=== PATIENT | female | born 1970 | race Caucasian/White ===

== ENCOUNTER 2017-05-13 20:30 | Emergency (ER) | payer OTHER ==
[2017-05-13 20:42] VITALS: BP 128/89; PULSE 87; TEMP 98.3; BMI 29.2
--- NOTE | 2017-05-13 21:37 | PDOC ---
History of Present Illness - General History Source: Patient Exam Limitations: No Limitations - History of Present Illness Initial Comments: 05/13/17 21:41 The patient is a 47 year old female, with significant past medical history hyperthyroidism, who presents to the emergency room with a right great toe laceration s/p accidentally dropping a ceramic platter on her toe. No active bleeding. The pain is exacerbated when ambulating. Denies any other injuries or trauma. Her tetanus shot was 7 years ago. 05/13/17 21:46 <Joselin Whittaker - Last Filed: 05/13/17 21:41> <Geraldine Cazares - Last Filed: 05/13/17 22:52> - General Chief Complaint: Injury Stated Complaint: RT BIG TOE INJURY Time Seen by Provider: 05/13/17 20:55 Past History <Joselin Whittaker - Last Filed: 05/13/17 21:41> - Past Medical History Anemia: No Asthma: No Cancer: No Cardiac Disorders: No CVA: No COPD: No CHF: No Dementia: No Diabetes: No GI Disorders: No Disorders: No HTN: No Hypercholesterolemia: No Liver Disease: No Seizures: No Thyroid Disease: Yes - Immunization History Immunization Up to Date: Yes - Suicide/Smoking/Psychosocial Hx Smoking Status: No Smoking History: Never smoked Have you smoked in the past 12 months: No Number of Cigarettes Smoked Daily: 0 Hx Alcohol Use: No Drug/Substance Use Hx: No Substance Use Type: None <Geraldine Cazares - Last Filed: 05/13/17 22:52> - Past Medical History Allergies/Adverse Reactions: Allergies Allergy/AdvReac Type Severity Reaction Status Date / Time No Known Allergies Allergy Verified 05/13/17 20:37 Home Medications: Ambulatory Orders Levothyroxine [Synthroid -] 50 mcg PO DAILY 03/05/13 Review of Systems - Review of Systems Able to Perform ROS?: Yes Comments:: 05/13/17 21:41 GENERAL/CONSTITUTIONAL: No fever or chills. No weakness. HEAD, EYES, EARS, NOSE AND THROAT: No change in vision. No ear pain or discharge. No sore throat. CARDIOVASCULAR: No chest pain or shortness of breath. RESPIRATORY: No cough, wheezing, or hemoptysis. MUSCULOSKELETAL: No neck or back pain. SKIN: Laceration on the right great toe. NEUROLOGIC: No headache, vertigo, loss of consciousness, or change in strength/ sensation. <Joselin Whittaker - Last Filed: 05/13/17 21:41> *Physical Exam - Vital Signs Last Vital Signs Temp Pulse Resp BP Pulse Ox 98.3 F 87 18 128/89 100 05/13/17 20:30 05/13/17 20:30 05/13/17 20:30 05/13/17 20:30 05/13/17 20:30 - Physical Exam Comments: 05/13/17 21:41 Constitutional: Awake, alert, oriented. No acute distress. Head: Normocephalic. Atraumatic Eyes: PERRL. EOMI. Conjunctivae are not pale. Neck: Supple. Full ROM. No lymphadenopathy. Cardiovascular: Regular rate. Regular rhythm. S1, S2 regular. Distal pulses are 2+ and symmetric. Pulmonary/Chest: No evidence of respiratory distress. Clear to auscultation bilaterally No wheezing, rales or rhonchi. Musculoskeletal: No edema. No cyanosis. No clubbing. Full range of motion in all extremities. No calf tenderness. Radial/pedal pulses are intact and 2+ bilaterally Skin: +1cm superficial, non bleeding laceration on the right great toe. Skin is warm and dry. No petechiae. No purpura. Neurological: Alert and oriented to person, place, and time. <Joselin Whittaker - Last Filed: 05/13/17 21:41> - Vital Signs Last Vital Signs Temp Pulse Resp BP Pulse Ox 98.3 F 87 18 128/89 100 05/13/17 20:30 05/13/17 20:30 05/13/17 20:30 05/13/17 20:30 05/13/17 20:30 <Geraldine Cazares - Last Filed: 05/13/17 22:52> Procedures - Laceration/Wound Repair Right Anterior Dorsal Toe 1st digit Wound Length: to 2.5 cm Wound Explored: clean Wound's Depth, Shape: superficial, linear Irrigated w/ Saline: Yes Betadine Prep: No Wound Repaired With: Dermabond Sterile Dressing Applied: Yes (pt tolerated the procedure well) <Geraldine Cazares - Last Filed: 05/13/17 22:52> Medical Decision Making - Medical Decision Making 05/13/17 22:37 a/p: 47yo female with lac to R big toe, no active bleeding -xray given trauma -tetanus -lac repair 05/13/17 22:48 xray reviewed: no fractures seen. dermabond to foot. 1cm linear superficial lac without bleeding pt tolerated the procedure well. Pt stable for d/c to home. Answered all questions. Pt ambulatory in the ED. sensation intact. discussed need for follow up with PMD and all reasons to return to the ED. <Geraldine Cazares - Last Filed: 05/13/17 22:52> *DC/Admit/Observation/Transfer <Joselin Whittaker - Last Filed: 05/13/17 21:41> - Discharge Dispostion Admit: No - Attestations Physician Attestion: 05/13/17 22:51 I, Dr. Geraldine Cazares, DO, attest that this document has been prepared under my direction and personally reviewed by me in its entirety. I further attest, that it accurately reflects all work, treatment, procedures and medical decision -making performed by me. <Geraldine Cazares - Last Filed: 05/13/17 22:52> Diagnosis at time of Disposition: Laceration of toe - Discharge Dispostion Disposition: HOME Condition at time of disposition: Stable - Referrals Referrals: Cara Brothers MD [Staff Physician] - - Patient Instructions Printed Discharge Instructions: DI for Laceration Repair With Dermabond Additional Instructions: Please follow up with your PMD. Please return to the ED with any further complaints.
[2017-05-13] MEDS ORDERED: DIPHTH,PERTUSS(ACELL),TET 0.5 ML DISP.SYRIN IM ONE (21:45)
== END 2017-05-13 23:04 | disposition home or self-care (01) ==
LOC: FER 20:30
PROC: 0HQMXZZ Repair Right Foot Skin, External Approach (ICD-10-PCS; principal; 2017-05-13)
PROC: 3E0234Z Introduction of Serum, Toxoid and Vaccine into Muscle, Percutaneous Approach (ICD-10-PCS; 2017-05-13)
DX: S91.111A Laceration without foreign body of right great toe without damage to nail, initial encounter (principal); W20.8XXA Other cause of strike by thrown, projected or falling object, initial encounter; Y93.89 Activity, other specified; Y92.9 Unspecified place or not applicable; E05.90 Thyrotoxicosis, unspecified without thyrotoxic crisis or storm
CPT/HCPCS: 12001-25; 73630-TC-RT; 90471; 90715; 99282-25

== ENCOUNTER 2017-11-19 23:25 | Emergency (ER) | payer OTHER ==
[2017-11-19 23:33] VITALS: BP 129/86; PULSE 82; TEMP 98; BMI 27.6
--- NOTE | 2017-11-20 00:49 | PDOC ---
History of Present Illness - General Chief Complaint: Burn Stated Complaint: BURN R ARM Time Seen by Provider: 11/19/17 23:37 - History of Present Illness Initial Comments: This otherwise healthy 47-year-old woman presents with history of burn to her right forearm. When patient was preparing hot tea this evening, she spilled boiling hot water on the volar aspect of her right forearm. Patient applied cold compresses/ice to the area immediately but had continued pain and noticed that some of the skin had peeled so she proceeded here. No history of difficulty with wound healing or resistant organism infection/colonization. No history of immunocompromise. No other injury sustained. Past History - Past Medical History Allergies/Adverse Reactions: Allergies Allergy/AdvReac Type Severity Reaction Status Date / Time No Known Allergies Allergy Verified 05/13/17 20:37 Home Medications: Ambulatory Orders Levothyroxine [Synthroid -] 50 mcg PO DAILY 03/05/13 Anemia: No Asthma: No Cancer: No Cardiac Disorders: No CVA: No COPD: No CHF: No Dementia: No Diabetes: No GI Disorders: No Disorders: No HTN: No Hypercholesterolemia: No Liver Disease: No Seizures: No Thyroid Disease: Yes - Immunization History Immunization Up to Date: Yes - Suicide/Smoking/Psychosocial Hx Smoking Status: No Smoking History: Never smoked Have you smoked in the past 12 months: No Number of Cigarettes Smoked Daily: 0 Information on smoking cessation initiated: No Hx Alcohol Use: No Drug/Substance Use Hx: No Substance Use Type: None Review of Systems - Review of Systems Able to Perform ROS?: Yes Comments:: 12 point review of systems is negative except for what is noted in the history of present illness *Physical Exam - Vital Signs Last Vital Signs Temp Pulse Resp BP Pulse Ox 98 F 82 14 129/86 100 11/19/17 23:30 11/19/17 23:30 11/19/17 23:30 11/19/17 23:30 11/19/17 23:30 - Physical Exam Comments: GENERAL: Adult female, alert and oriented 3, in no acute distress HEAD: Normal with no signs of trauma. EYES: PERRLA, EOMI, sclera anicteric, conjunctiva clear. EXTREMITIES: Normal range of motion, No clubbing or cyanosis.. NEUROLOGICAL: Cranial nerves II through XII grossly intact. Normal speech. No focal neurological deficits. MUSCULOSKELETAL: Back non-tender to palpation, no CVA tenderness SKIN: Right forearm, volar aspect -2 central oval areas 3.5 cm x 2 cm of second degree burn surrounded by 8 cm x 5 cm first-degree burn No other burn or other skin abnormality seen Progress Note - Progress Note Progress Note: This 47-year-old woman with no history of wound healing difficulties or immunocompromise presents with localized area of second degree burn surrounded by a larger area of first-degree burn. No other injury sustained Area was cleansed with sterile normal saline, Silvadene cream followed by sterile gauze and Nilo wrap applied. Patient will change this dressing on a daily basis. She has been given referral information for Dr. Polanco with whom she should follow up within 1 week. If she has increasing pain/swelling/ redness of the area or notices any discharge from the wound prior to seeing Dr. Polanco, she should return to the emergency room *DC/Admit/Observation/Transfer Diagnosis at time of Disposition: 2nd deg burn arm Qualifiers: Encounter type: initial encounter Upper extremity location: forearm Laterality : right Qualified Code(s): T22.211A - Burn of second degree of right forearm, initial encounter - Discharge Dispostion Disposition: HOME Condition at time of disposition: Stable - Referrals Referrals: Olga Polanco MD [Staff Physician] - 1 week - Patient Instructions Printed Discharge Instructions: How to Take Care of a Burn Additional Instructions: Daily Silvadene/gauze dressing to wound Elevate/cold compresses as needed Carefully remove old silvadene prior to applying new cream Follow-up with plastic surgeon ()within 1 week Return to ER if you have worsening pain/redness/swelling or develop fever - Post Discharge Activity
== END 2017-11-20 01:36 | disposition home or self-care (01) ==
LOC: FER 23:25
PROC: 2W2AX4Z Dressing of Right Upper Arm using Bandage (ICD-10-PCS; principal; 2017-11-19)
DX: T22.211A Burn of second degree of right forearm, initial encounter (principal); X10.0XXA Contact with hot drinks, initial encounter; Y93.G3 Activity, cooking and baking; Y92.000 Kitchen of unspecified non-institutional (private) residence as the place of occurrence of the external cause
CPT/HCPCS: 99282-25